=== PATIENT | male | born 1970 | race African-American/Black ===

== ENCOUNTER 2017-10-24 18:16 | Emergency (ER) | payer MEDICAID ==
[~2017-10-24] VITALS: Ht 182.9 cm; Wt 69.4 kg
[2017-10-24] MEDS ORDERED: LISINOPRIL 2.5 MG (18:47)
[2017-10-24] MEDS ORDERED: IBUPROFEN 600 MG TABLET (18:47)
[2017-10-24] MEDS ORDERED: LANTUS 100 UNIT/ML (18:47)
[2017-10-24] MEDS ORDERED: METFORMIN HCL 1,000 MG TABLET (18:47)
--- NOTE | 2017-10-24 19:12 | NUR ---
Assumed care of patient. No acute distress noted.
--- NOTE | 2017-10-24 20:25 | NUR ---
BS recheck, @ 157mg/dl. MILA CHAMBERS aware.
[2017-10-24 20:56] LABS: BASOPHILS # (AUTO) 0.1 K/uL (0.0-8.0); BASOPHILS % (AUTO) 0.9 % (0.0-2.0); EOSINOPHILS # (AUTO) 0.2 K/uL (0.0-0.7); EOSINOPHILS % (AUTO) 2.9 % (0.0-7.0); HEMATOCRIT 23.3 % (36.7-47.1); HEMOGLOBIN 7.6 g/dL (12.5-16.3); LYMPHOCYTES # (AUTO) 1.1 K/uL (20.0-40.0); LYMPHOCYTES % (AUTO) 18.6 % (20.5-51.5); MEAN CORPUSCULAR HEMOGLOBIN 30.3 uug (23.8-33.4); MEAN CORPUSCULAR HGB CONC 33 g/dL (32.5-36.3); MONOCYTES # (AUTO) 0.5 K/uL (2.0-10.0); MONOCYTES % (AUTO) 8.3 % (0.0-11.0); NEUTROPHILS # (AUTO) 3.9 K/uL (1.8-8.9); NEUTROPHILS % (AUTO) 69.3 % (38.5-71.5); PLATELET COUNT (AUTO) 231 K/uL (152-348); WHITE BLOOD COUNT (AUTO) 5.7 K/uL (3.6-10.2)
[2017-10-24 21:20] LABS: CREATININE 1.4 mg/dL (0.6-1.3); POTASSIUM 4.5 mmol/L (3.5-5.1)
[2017-10-24 21:33] LABS: BILIRUBIN,DIRECT 0.2 mg/dL (0.0-0.2); BILIRUBIN,TOTAL 0.3 mg/dL (0.2-1.0); TOTAL PROTEIN, SERUM 5.8 g/dL (6.4-8.2)
--- NOTE | 2017-10-24 22:40 | NUR ---
dcPatient discharged to home in stable conditon. Written and verbal after care instructions given. Patient verbalizes understanding of instructions. Ambulated from [place] with stable gait. All belongings with patient.
[2017-10-24 22:42] VITALS: BP 144/78
== END 2017-10-24 22:43 | disposition home or self-care (01) ==
LOC: ER 18:18
DX: N28.9 Disorder of kidney and ureter, unspecified (principal); D64.9 Anemia, unspecified; R60.0 Localized edema; E11.9 Type 2 diabetes mellitus without complications; F29 Unspecified psychosis not due to a substance or known physiological condition; I10 Essential (primary) hypertension; K85.90 Acute pancreatitis without necrosis or infection, unspecified; R56.9 Unspecified convulsions; Z79.4 Long term (current) use of insulin
CPT/HCPCS: 36415; 70030-TC; 71045; 85025; 85730; 93005; A4663